=== PATIENT | male | born 1965 | race Caucasian/White ===

== ENCOUNTER 2023-02-17 08:57 | Outpatient (CLI) | payer BC | END 2023-02-17 08:58 | disposition home or self-care (01) | LOC: CSHRAD 08:57 | PROVIDERS: ATTEND Transplant Surgery | DX: M54.2 Cervicalgia (principal); M47.812 Spondylosis without myelopathy or radiculopathy, cervical region; Z98.890 Other specified postprocedural states | CPT/HCPCS: 72040 ==

== ENCOUNTER 2023-03-07 09:35 | Day surgery (SDC) | payer BC ==
[2023-03-07 11:26] VITALS: BP 109/73; TEMP 97.6
[2023-03-07] MEDS ORDERED: FLU VACC QS2023-24(6MOS UP)/PF 60 MCG/0.5 ML SYRINGE IM ONE (12:15)
== END 2023-03-07 12:15 | disposition home or self-care (01) ==
LOC: CSHRAD 09:35
PROVIDERS: ATTEND Neurological Surgery
PROC: B02BYZZ Computerized Tomography (CT Scan) of Spinal Cord using Other Contrast (ICD-10-PCS; principal; 2023-03-07)
DX: M47.12 Other spondylosis with myelopathy, cervical region (principal)
CPT/HCPCS: 62302; 72126